=== PATIENT | female | born 1945 | race Caucasian/White ===

== ENCOUNTER 2019-04-04 12:23 | Outpatient (CLI) | payer MEDICARE, OTHER ==
[~2019-04-04] VITALS: Ht 160 cm; Wt 57.8 kg
[~2019-04-04 12:23] MED LIST: DEXL60CA5 PO; LOSA1TAB20 PO; PANT40TA PO; PANT40TA3 PO; SCR1T1 PO; SIMV40TA4 PO
[2019-04-04 12:40] VITALS: BP 131/75
[2019-04-04 13:16] LABS: BASOPHILS % (AUTO) 0 % (0-10); EOSINOPHILS # (AUTO) 0.1 10^3/uL (0.0-0.3); EOSINOPHILS % (AUTO) 1 % (0-10); HEMATOCRIT 37 % (35-52); HEMOGLOBIN 11.6 G/DL (11.5-16.0); LYMPHOCYTES # (AUTO) 1.9 X 10^3 (1.0-4.0); LYMPHOCYTES % (AUTO) 36 % (12-44); MEAN CORPUSCULAR HEMOGLOBIN 27 PG (25-34); MEAN CORPUSCULAR HGB CONC 32 G/DL (32-36); MEAN CORPUSCULAR VOLUME 86 FL (80-99); MEAN PLATELET VOLUME 9.4 FL (7.4-10.4); MONOCYTES # (AUTO) 0.4 X 10^3 (0.0-1.0); MONOCYTES % (AUTO) 7 % (0-12); NEUTROPHILS % (AUTO) 56 % (42-75); PLATELET COUNT 342 10^3/uL (130-400); RED CELL DISTRIBUTION WIDTH 14.9 % (10.0-14.5); WHITE BLOOD COUNT 5.4 10^3/uL (4.3-11.0)
--- NOTE | 2019-04-04 13:25 | Diagnostic Imaging Report ---
CLINICAL INDICATION: Preop chest x-ray for right knee arthroplasty. EXAM: Chest x-ray PA and lateral views. COMPARISON: Chest x-ray dated 08/21/2014. FINDINGS: Lungs/pleura: Likely minimal atelectasis in the left lung base. Otherwise, lungs are clear. There is no pneumothorax. There is no pleural effusion. Mediastinum: Unremarkable. Pulmonary vasculature: Unremarkable. Heart: Unremarkable. Bones/extrathoracic soft tissue: Interval placement of upper lumbar spine fusion partially visualized. IMPRESSION: Likely minimal atelectasis involving the left lung base. There is no radiographic evidence of acute cardiopulmonary process. Dictated by: Dictated on workstation # [id number]
[2019-04-04 13:32] LABS: PROTHROMBIN TIME PATIENT 13.2 SEC (12.2-14.7)
[2019-04-04] MEDS ORDERED: LOSA50TA63 PO (13:34)
[2019-04-04] MEDS ORDERED: HYDR12.56 PO (13:34)
[2019-04-04] MEDS ORDERED: SIMV40TA4 PO (13:34)
[2019-04-04 13:35] LABS: BILIRUBIN,URINE NEGATIVE (NEGATIVE); CLARITY,URINE CLEAR; COLOR,URINE YELLOW; GLUCOSE, URINE (UA) NEGATIVE (NEGATIVE); KETONES,URINE TRACE (NEGATIVE); LEUKOCYTE ESTERASE ,URINE NEGATIVE (NEGATIVE); NITRITE,URINE NEGATIVE (NEGATIVE); PH,URINE 5.5 (5-9); PROTEIN,URINE NEGATIVE (NEGATIVE)
[2019-04-04 13:35] LABS: BUN/CREATININE RATIO 19; CALCIUM 9.1 MG/DL (8.5-10.1); CARBON DIOXIDE 28 MMOL/L (21-32); CHLORIDE 104 MMOL/L (98-107); CREATININE SERUM 0.89 MG/DL (0.60-1.30); GFR ESTIMATED > 60; GLUCOSE 93 MG/DL (70-105); POTASSIUM 4.1 MMOL/L (3.6-5.0); SODIUM 141 MMOL/L (135-145)
[2019-04-04 13:45] LABS: BACTERIA,URINE FEW /HPF; RBC,URINE RARE /HPF
[2019-04-04 13:46] LABS: SQUAMOUS EPITHELIAL CELL,UR 25-50 /HPF
== END 2019-04-04 13:30 | disposition home or self-care (01) ==
LOC: PREOP 12:23
PROVIDERS: ATTEND Orthopaedic Surgery
DX: Z01.818 Encounter for other preprocedural examination (principal); Z01.812 Encounter for preprocedural laboratory examination; M17.11 Unilateral primary osteoarthritis, right knee; I10 Essential (primary) hypertension; Z22.322 Carrier or suspected carrier of Methicillin resistant Staphylococcus aureus
CPT/HCPCS: 36415; 71046; 80048; 81000; 85025; 85610; 86850; 86900; 86901; 87081; 93005

== ENCOUNTER 2019-04-16 10:57 | Inpatient (IN) | payer MEDICARE, OTHER ==
[~2019-04-16] VITALS: Ht 160 cm; Wt 63.0 kg
[2019-04-16] VITALS (10 sets, daily range): BP systolic 109–139; BP diastolic 61–85
[~2019-04-16 10:57] MED LIST changes: +HYDR12.56 PO; +LOSA50TA63 PO
[2019-04-16] MEDS ORDERED: INTRA-ARTICULAR IU ONE ×4 (11:30)
[2019-04-16] MEDS ORDERED: ONDANSETRON 4 MG/2 ML (SDV) Z0FRAN IV ONE (11:45)
[2019-04-16] MEDS ORDERED: ceFAZolin 2 GM/50 ML PRE-MIX IV ONE (11:45)
[2019-04-16] MEDS: LACTATED RINGERS 1,000 ML IV PRN ×3 (11:45→14:22)
[2019-04-16] MEDS ORDERED: CELECOXIB 100 MG (CeleBREX) CAP PO ONE ×2 (11:45)
[2019-04-16] MEDS ORDERED: ONDANSETRON 4 MG/2 ML (SDV) Z0FRAN IVP ONE (11:45)
[2019-04-16] MEDS ORDERED: GABAPENTIN 600 MG (NEURONTIN) TAB PO ONE ×2 (11:45)
[2019-04-16] MEDS ORDERED: DEXAMETHASONE 4 MG/ML SDV (DECADRON) IV ONE ×2 (11:45)
[2019-04-16] MEDS ORDERED: ceFAZolin 2 GM IV Premixed 50 ML IV ONE (11:45)
[2019-04-16] MEDS ORDERED: MIDAZOLAM 2 MG/2 ML (VERSED) VIAL ONE (11:55)
[2019-04-16] MEDS ORDERED: BUPIVACAINE 0.5% 30 ML (SENSORCAINE) VIAL ONE (11:57)
--- NOTE | 2019-04-16 12:39 | Progress Note-Pre Operative ---
Pre-Operative Progress Note H&P Reviewed The H&P was reviewed, patient examined and no changes noted. Date Seen by Provider: Apr 16, 2019 Time Seen by Provider: 12:30 Date H&P Reviewed: Apr 16, 2019 Time H&P Reviewed: 12:30 Pre-Operative Diagnosis: Primary Osteoarthritis Right Knee TYLER CERVANTES DO Apr 16, 2019 12:39 POS
[2019-04-16] MEDS ORDERED: DEXAMETHASONE 10 MG/ML (DECADRON) 1 ML VIAL ONE (12:48)
[2019-04-16] MEDS ORDERED: proPOfol 200 MG/20 ML (DIPRIVAN) VIAL IV ONE (12:48)
[2019-04-16] MEDS ORDERED: ONDANSETRON 4 MG/2 ML (SDV) Z0FRAN ONE ×2 (12:48→17:22)
[2019-04-16] MEDS ORDERED: LIDOCAINE PF 2% 5 ML (XYLOCAINE) VIAL ONE (12:48)
[2019-04-16] MEDS ORDERED: SEVOFLURANE (ULTANE) 15 ML INHAL SOLN ONE (12:48)
[2019-04-16] MEDS ORDERED: fentaNYL INJECTION 100 MCG/2 ML AMP ONE ×2 (12:50→13:39)
[2019-04-16] MEDS ORDERED: TRANEXAMIC ACID 100 MG/ML 10 ML INJECTION IV ONE (13:17)
[2019-04-16] MEDS ORDERED: MUPIROCIN 2% OINT 22 GM (BACTROBAN) TUBE ONE (14:51)
--- NOTE | 2019-04-16 14:58 | Progress Note-Post Operative ---
Post-Operative Progess Note Surgeon (s)/Strickler Attendant (s) Surgeon TYLER CERVANTES DO Strickler Attendant: Teddy Padron CABLE SYSTEMS INSTALLER-Luis Pre-Operative Diagnosis Primary Osteoarthritis Right Knee Post-Operative Diagnosis same Procedure & Operative Findings Date of Procedure 04/16/19 Procedure Performed/Findings Right Total Knee Arthroplasty Anesthesia Type General with femoral and genicular block Estimated Blood Loss Estimated blood loss (mL): 250 Specimens/Packing Specimens Removed none TYLER CERVANTES DO Apr 16, 2019 14:57 POS
[2019-04-16] MEDS ORDERED: morphine INJ 10 MG/ML 1ML (SYR OR VIAL) ONE (15:27)
[2019-04-16] MEDS ORDERED: BISACODYL 10 MG SUPP (DULCOLAX) PR PRN (15:30)
[2019-04-16] MEDS ORDERED: morphine INJ 10 MG/ML 1ML (SYR OR VIAL) IVP ONE (15:30)
[2019-04-16] MEDS ORDERED: ONDANSETRON 4 MG/2 ML (SDV) Z0FRAN IVP PRN ×2 (15:30→17:45)
[2019-04-16] MEDS ORDERED: MILK OF MAGNESIA 400 MG/5 ML 30 ML UDC PO PRN (15:30)
[2019-04-16] MEDS ORDERED: diphenhydrAMINE 50 MG/ML INJ (BENADRYL) IV PRN (15:30)
[2019-04-16] MEDS ORDERED: morphine INJ 4 MG/ML 1 ML (VIAL/SYRINGE) IV PRN (15:30)
[2019-04-16] MEDS ORDERED: HYDROmorphone 2 MG/ML VIAL (DILAUDID) IV ONE (15:30)
[2019-04-16] MEDS ORDERED: D5 1/2 NS 1000 ML IV SOLUTION 1,000 ML IV SCH (15:30)
--- NOTE | 2019-04-16 15:52 | Diagnostic Imaging Report ---
INDICATION: Right knee surgery. TIME OF EXAM: 3:31 p.m. FINDINGS: Two views of the right knee demonstrate postop changes of total knee arthroplasty. Prosthetic elements are in good position. No fracture or loosening is seen. Overlying skin shivani are noted. IMPRESSION: Satisfactory postop appearance to the right knee. Dictated by: Dictated on workstation # [id number]
--- NOTE | 2019-04-16 16:05 | NUR ---
Pt transferred to room 433. Report received from ARDEN Gaytan. This RN assumed care of pt at this time.
[2019-04-16] MEDS: ACETAMINOPHEN 500 MG TAB (TYLENOL) PO SCH (18:23)
[2019-04-16] MEDS: KETOROLAC 15 MG/ML VIAL IV SCH (18:23)
[2019-04-16] MEDS: D5 1/2 NS 1000 ML IV SOLUTION 1,000 ML IV SCH (18:24)
[2019-04-16] MEDS: ENOXAPARIN 40 MG/0.4 ML (LOVENOX) SYR SC SCH (18:24)
[2019-04-16] MEDS: ceFAZolin 2 GM IV Premixed 50 ML IV SCH (20:28)
[2019-04-16] MEDS: SENNA W/DOCUSATE (SENOKOT S) TABLET PO SCH (20:28)
[2019-04-16] MEDS: HYDROcodone/APAP 10 MG/325 MG (LORTAB) TAB PO PRN (20:35)
[2019-04-17] MEDS: KETOROLAC 15 MG/ML VIAL IV SCH ×5 (00:08→23:31)
[2019-04-17] MEDS: ACETAMINOPHEN 500 MG TAB (TYLENOL) PO SCH ×6 (00:08→23:05)
[2019-04-17] MEDS: HYDROcodone/APAP 10 MG/325 MG (LORTAB) TAB PO PRN ×5 (00:21→21:31)
[2019-04-17 00:40] VITALS: BP 122/69
[2019-04-17 04:00] VITALS: BP 112/65
[2019-04-17] MEDS: ceFAZolin 2 GM IV Premixed 50 ML IV SCH (04:35)
[2019-04-17 04:59] LABS: HEMOGLOBIN 10.1 G/DL (11.5-16.0); MEAN PLATELET VOLUME 9.9 FL (7.4-10.4); RED CELL DISTRIBUTION WIDTH 14.5 % (10.0-14.5); WHITE BLOOD COUNT 9.6 10^3/uL (4.3-11.0)
[2019-04-17 05:27] LABS: BUN/CREATININE RATIO 17; CALCIUM 8.7 MG/DL (8.5-10.1); CARBON DIOXIDE 26 MMOL/L (21-32); CHLORIDE 102 MMOL/L (98-107); CREATININE SERUM 0.78 MG/DL (0.60-1.30); GFR ESTIMATED > 60; GLUCOSE 220 MG/DL (70-105); POTASSIUM 4.4 MMOL/L (3.6-5.0); SODIUM 139 MMOL/L (135-145)
[2019-04-17] MEDS: PANTOPRAZOLE 40 MG (PROTONIX) TAB PO SCH (06:15)
[2019-04-17] MEDS: D5 1/2 NS 1000 ML IV SOLUTION 1,000 ML IV SCH ×2 (06:19→17:20)
[2019-04-17 08:00] VITALS: BP 120/71
[2019-04-17] MEDS: LOSARTAN 50 MG (COZAAR) TAB PO SCH (08:55)
[2019-04-17] MEDS: HYDROCHLOROTHIAZIDE 12.5 MG (HCTZ) CAP PO SCH (08:56)
[2019-04-17] MEDS: ASPIRIN E.C. 325 MG (ECOTRIN) TABLET PO SCH (08:57)
[2019-04-17] MEDS ORDERED: NON-FORMULARY MEDICATION 1 EA EA (Hydrochlorothiazide 12.5 MG) PO SCH (09:00)
[2019-04-17] MEDS ORDERED: NON-FORMULARY MEDICATION 1 EA EA (Losartan Potassium 50 MG) PO SCH (09:00)
--- NOTE | 2019-04-17 10:00 | Anesthesia-General Post-Op ---
General Patient Condition Mental Status/LOC: Same as Preop Cardiovascular: Satisfactory Nausea/Vomiting: Absent Respiratory: Satisfactory Pain: Controlled Complications: Absent Post Op Complications Complications None Follow Up Care/Instructions Patient Instructions None needed. Anesthesia/Patient Condition Patient Condition Patient is doing well, no complaints, stable vital signs, no apparent adverse anesthesia problems. No complications reported per nursing. D/C home per [facility] Criteria: CORRINE Luna CRNA Apr 17, 2019 10:00 POS
--- NOTE | 2019-04-17 10:24 | Physical Therapy Evaluation ---
PT Evaluation-General Medical Diagnosis Admission Date Apr 16, 2019 at 10:57 Medical Diagnosis: S/P R TKA Onset Date: Apr 16, 2019 Therapy Diagnosis Therapy Diagnosis: abn gait. weakness, ROM Height/Weight Height (Feet): 5 Height (Inches): 3.00 Weight (Pounds): 139 Weight (Ounces): 0.0 Precautions Precautions/Isolations: Fall Prevention Weight Bear Status Right Lower Extremity: Right Weight Bearing/Tolerated Left Lower Extremity: Left Weight Bearing/Tolerated Referral Physician: Teddy Padron Reason for Referral: Evaluation/Treatment, Strengthening Medical History Additional Medical History no PMH in chart at this time. Reviewed History: Yes Social History Home: Single Level Current Living Status: Significant Other Entry Into Home: Stairs Without Railing PT Steps Into Home: 2 Prior Prior Level of Function SCALE: Activities may be completed with or without assistive devices. 5-Gpimnhdqjq-ifxxbbk completes the activity by him/herself with no assistance from a helper. 5-Set-up or Clean-up Assistance-helper sets up or cleans up; patient completes activity. [place] assists only prior to or following the activity. 4-Supervision or Touching Assistance-helper provides verbal cues and/or touching/steadying and/or contact guard assistance as patient completes activity. Assistance may be provided throughout the activity or intermittently. 3-Partial/Moderate Assistance-helper does LESS THAN HALF the effort. [place] lifts, holds or supports trunk or limbs, but provides less than half the effort. 2-Substantial/Maximal Assistance-helper does MORE THAN HALF the effort. [place] lifts or holds trunk or limbs and provides more than half the effort. 6-Dnvndlyok-szxkig does ALL the effort. Patient does none of the effort to complete the activity. Or, the assistance of 2 or more helpers is required for the patient to complete the activity. If activity was not attempted, code reason: 7-Patient Refused. 9-Not Applicable-not attempted and the patient did not perform the activity before the current illness, exacerbation or injury. 10-Not Attempted due to Environmental Limitations-(lack of equipment, weather restraints, etc.). 88-Not Attempted due to Medical Conditions or Safety Concerns. Bed Mobility: 6 Transfers (B,C,W/C): 6 Gait: 6 Stairs: 6 Indoor Mobility (Ambulation): Independent Stairs: Independent PT Evaluation-Current Subjective pt in bed pre-tx with pain in the R knee 5/10 at this time. pt agrees to therapy Pt in bed post-tx with call light, room phone, tray table in reach and all needs met at this time. CPM is defective, will try to get her another one today or soon. Pt/Family Goals pt goal is to go home indep. Objective Patient Orientation: Person, Place, Time, Situation Attachments: SCD's, Oxygen (1L), Polar Pack, IV ROM/Strength ROM Lower Extremities R knee flexion 70degrees extension lack 8degrees Strength Lower Extremities RLE not tested secondary to post surgical status LLE grossly 5/5 throughout Integumentary/Posture Integumentary see nursing notes Sensory Vision: Functional Hearing: Functional Sensation Right Lower Extremit: Intact Sensation Left Lower Extremity: Intact Transfers Roll Left to Right (QC): 4 Sit to Lying (QC): 4 (SBA) Lying to Sitting/Side of Bed(Q: 4 (SBA) Sit to Stand (QC): 4 (SBA) Chair/Jnx-uh-Ljmoz Xfer(QC): 4 Car Transfer (QC): 88 Gait Does the Patient Walk?: Yes Mode of Locomotion: Walk Anticipated Mode of Locomotion: Walk Walk 10 feet (QC): 4 (CGA) Walk 50 ft with 2 Turns(QC): 4 (CGA) Walk 150 ft (QC): 4 (CGA) Walking 10ft/uneven surface-QC: 88 Distance: 180' Gait Assistive Device: FWW Comments/Gait Description pt walks with RLE in flexed position and short choppy steps. VC's given to take longer steps and to allow the RLE to flex for swing and straighten out for stance phase with slight improvement Wheelchair Training Does the Pt Use a Wheelchair?: No Wheel 50 ft with 2 turns (QC): 88 Wheel 150 ft (QC): 8 Type of Wheelchair: Manual Stairs 1 Step (curb) (QC): 88 4 Steps (QC): 88 12 Steps (QC): 88 Balance Sitting Static: Normal Sitting Dynamic: Normal Standing Static: Normal Standing Dynamic: Good Picking up an Object (QC): 88 Treatment pt performed bed mobility training, transfer training, skilled ambulation training, education, and functional LE strengthening exercises (10 reps in supine: AP's, HS's, SLR, QS, GS, LAQ) Assessment/Needs Pt has decreased pain to no pain from baseline following session. Pt requires mod VC's to continues to take longer steps and allow R knee motion with ambulation to decrease R hip hike. Rehab Potential: Good PT Golf Tournament Consultant Goals Golf Tournament Consultant Goals PT Golf Tournament Consultant Goals Time Frame: Apr 24, 2019 Roll Left & Right (QC): 6 Sit to Lying (QC): 6 Lying-Sitting on Side/Bed(QC): 6 Sit to Stand (QC): 6 Chair/Hoo-mi-Kgoxn Xfer(QC): 6 Toilet Transfer (QC): 6 Car Transfer (QC): 6 Does the Patient Walk: Yes Walk 10 feet (QC): 6 Walk 50ft with 2 Turns (QC): 6 Walk 150 ft (QC): 6 Walking 10ft on Uneven Surface: 6 1 Step (curb) (QC): 4 4 Steps (QC): 4 12 Steps (QC): 88 Picking up an Object (QC): 88 Does the Pt use WC or Scooter?: No Type: Manual Type: Manual pt will walk 300' indep with FWW PT Plan Problem List Problem List: Activity Tolerance, Functional Strength, Safety, Balance, Gait, Transfer, Bed Mobility, ROM Treatment/Plan Treatment Plan: Continue Plan of Care Treatment Plan: Bed Mobility, Education, Functional Activity Liliana, Functional Strength, Gait, Safety, Therapeutic Exercise, Transfers Treatment Duration: Apr 24, 2019 Frequency: 11 times per week Estimated Hrs Per Day: .25 hour per day Patient and/or Family Agrees t: Yes Safety Risks/Education Patient Education: Gait Training, Transfer Techniques, Correct Positioning, Safety Issues Teaching Recipient: Patient Teaching Methods: Demonstration, Discussion Response to Teaching: Return Demonstration, Reinforcement Needed Discharge Recommendations Plan pt will perform functional LE strengthening exercises, skilled ambulation training, bed mobility training, transfer training, and education. Time/GCodes Time In: 917 Time Out: 943 Total Billed Treatment Time: 26 Total Billed Treatment 1 visit JOVITA 10' GT 16' RAFAEL PICKERING PT Apr 17, 2019 10:24 POS
--- NOTE | 2019-04-17 11:56 | NUR ---
CM DISCHARGE PLANNING: SS referral received for discharge planning. Visited with patient et she reports that she will be discharged to home tomorrow. She reports that she would like Physical therapy at home. Choice form was presented to her of the available [facility] agencies. She elected [facility]. Choice form signed et placed on her chart. Contacted [facility] for referral et anticipated discharge date. She denies any other needs et reports that she has a CPM to take home with her that Dr. Rae nurse set up. CPM is at bedside. She reports that she has all other equipment et no further needs. D/C with [facility] for Physical therapy.
[2019-04-17 12:00] VITALS: BP 121/65
--- NOTE | 2019-04-17 12:31 | Progress Note ---
Subjective Date Seen by a Provider: Apr 17, 2019 Time Seen by a Provider: 12:26 Subjective/Events-last exam No complaints at this time. Doing well POD 1 s/p right TKA Objective Exam Vital Signs Date Time Temp Pulse Resp B/P (MAP) Pulse Ox O2 Delivery O2 Flow Rate FiO2 04/17/19 08:00 36.0 77 18 120/71 (87) 99 Nasal Cannula 2.00 04/17/19 08:00 99 Nasal Cannula 1.00 04/17/19 05:48 Nasal Cannula 2.00 04/17/19 04:00 36.5 73 18 112/65 (81) 98 Nasal Cannula 2.00 04/17/19 00:40 36.7 73 16 122/69 (86) 98 Nasal Cannula 2.00 04/16/19 20:25 98 Nasal Cannula 2.00 04/16/19 20:25 Nasal Cannula 2.00 04/16/19 20:09 36.4 77 16 109/61 (77) 98 Nasal Cannula 2.00 04/16/19 16:25 Nasal Cannula 3.00 04/16/19 16:05 Nasal Cannula 3 04/16/19 16:05 36.6 20 137/78 (97) 98 Nasal Cannula 3 04/16/19 16:02 36.0 88 14 137/68 (91) 99 Nasal Cannula 3.00 04/16/19 16:00 Nasal Cannula 3 04/16/19 16:00 20 137/79 (98) 98 Nasal Cannula 3 04/16/19 15:50 20 137/79 (98) 97 Nasal Cannula 3 04/16/19 15:45 Room Air 04/16/19 15:40 20 139/77 (97) 99 OxyMask 3 04/16/19 15:30 OxyMask 8 04/16/19 15:30 20 137/85 (102) 100 OxyMask 8 04/16/19 15:20 20 123/80 (94) 100 OxyMask 8 04/16/19 15:15 OxyMask 8 04/16/19 15:10 OxyMask 8 04/16/19 15:10 36.9 16 119/81 (94) 100 OxyMask 8 I & O 04/17/19 07:00 Intake Total 2710 ml Output Total 1050 ml Balance 1660 ml Capillary Refill : Less Than 3 Seconds General Appearance: No Apparent Distress Gastrointestinal: non tender, soft Extremity: Normal Capillary Refill, Normal Inspection, Normal Range of Motion, Non Tender, No Calf Tenderness Neurologic/Psychiatric: Alert, Oriented x3, No Motor/Sensory Deficits Skin: Normal Color, Warm/Dry (dressing right knee CDI) Results Lab Laboratory Tests 04/17/19 04:30: White Blood Count 9.6, Red Blood Count 3.74L, Hemoglobin 10.1L, Hematocrit 32L, Mean Corpuscular Volume 85, Mean Corpuscular Hemoglobin 27, Mean Corpuscular Hemoglobin Concent 32, Red Cell Distribution Width 14.5, Platelet Count 313, Mean Platelet Volume 9.9, Sodium Level 139, Potassium Level 4.4, Chloride Level 102, Carbon Dioxide Level 26, Anion Gap 11, Blood Urea Nitrogen 13, Creatinine 0.78, Estimat Glomerular Filtration Rate > 60, BUN/Creatinine Ratio 17, Glucose Level 220H, Calcium Level 8.7 Assessment/Plan Assessment/Plan Assess & Plan/Chief Complaint A: s/p right TKA P: Continue current treatment, plan to DC to home with [facility] tomorrow Clinical Quality Measures DVT/VTE Risk/Contraindication: Risk Factor Score Per Nursin RFS Level Per Nursing on Admit: 4+=Very High SHANE MESSER APRN Apr 17, 2019 12:31 POS
--- NOTE | 2019-04-17 13:19 | Occupational Therapy Eval ---
OT Evaluation-General/PLF Medical Diagnosis Admission Date Apr 16, 2019 at 10:57 Medical Diagnosis: S/P R TKA Onset Date: Apr 16, 2019 Therapy Diagnosis Therapy Diagnosis: Decreased functional mobility and ADL function Height/Weight Height (Feet): 5 Height (Inches): 3.00 Weight (Pounds): 139 Weight (Ounces): 0.0 Precautions Precautions/Isolations: Fall Prevention Safety Interventions: Reorient-PRN Weight Bear Status Weight Bearing Restriction: Weight Bearing/Tolerated Referral Physician: Teddy Padron Referral Reason: Activity Tolerance, Self Care, Evaluation/Treatment, Strengthening/ROM Medical History Additional Medical History R TKA Reviewed History: Yes Social History Home: Single Level Current Living Status: Significant Other Entry Into Home: Stairs Without Railing Steps Into Home: 2 Steps Inside Home: 0 ADL-Prior Level of Function SCALE: Activities may be completed with or without assistive devices. 3-Lzznzrygta-pmqspfr completes the activity by him/herself with no assistance from a helper. 5-Set-up or Clean-up Assistance-helper sets up or cleans up; patient completes activity. [place] assists only prior to or following the activity. 4-Supervision or Touching Assistance-helper provides verbal cues and/or touching/steadying and/or contact guard assistance as patient completes activity. Assistance may be provided throughout the activity or intermittently. 3-Partial/Moderate Assistance-helper does LESS THAN HALF the effort. [place] lifts, holds or supports trunk or limbs, but provides less than half the effort. 2-Substantial/Maximal Assistance-helper does MORE THAN HALF the effort. [place] lifts or holds trunk or limbs and provides more than half the effort. 9-Ujpunrycp-diozxq does ALL the effort. Patient does none of the effort to complete the activity. Or, the assistance of 2 or more helpers is required for the patient to complete the activity. If activity was not attempted, code reason: 7-Patient Refused. 9-Not Applicable-not attempted and the patient did not perform the activity before the current illness, exacerbation or injury. 10-Not Attempted due to Environmental Limitations-(lack of equipment, weather restraints, etc.). 88-Not Attempted due to Medical Conditions or Safety Concerns. Self Care: Independent Functional Cognition: Independent DME/Equipment: Bath Chair, Tub/Shower DME/Equipment Comments Pt has FWW and single point cane at home. Occupation: retired Drive Self: Yes Leisure Interests: cooking OT Current Status Subjective Pt seen in bed, requests bathroom. Pt states no pain, agreeable to OT evaluation. Mental Status/Objective Patient Orientation: Person, Place, Situation, Normal For Age Attachments: IV, Oxygen (.5L), Polar Pack, SCD's Current Glasses/Contacts: Yes Hearing Aids: No Dentures/Partials: Yes Hand Dominance: Right Upper Extremity ROM WFL BUE Upper Extremity Coordination WFL BUE Upper Extremity Sensation WFL BUE, no c/o paresthesias Upper Extremity Strength WFL BUE= 4-/5 ADL-Treatment Eating (QC): 6 Oral Hygiene (QC): 7 Shower/Bathe Self (QC): 7 Upper Body Dressing (QC): 7 Lower Body Dressing (QC): 6 On/Off Footwear (QC): 6 Toileting Hygiene (QC): 6 Toilet Transfer (QC): 6 Other Treatments Pt completes bed mob with IND, increased time for tubing management. Pt sit to stand with IND to FWW, utilizes FWW with safety to commode. Completes toileting with IND, sit to stand with IND with FWW and transfers to EOB. Pt completes doffing/ donning R sock with good dynamic sitting balance with IND. Pt states both she and retired, she gets all groceries on Mondays and plans to "take it easy" within the home until she returns to [place], states she will have HHPT 3x per week. Pt educated on acute OT role and agree pt is safe with ADLs. Pt states minimal pain through TKA, no pain currently but has had 6/10 pain prior. Pt denies sitting up for food; returns to bed with SCD and polar pack donned, table s/u for feeding, call light in reach, all needs met. Education OT Patient Education: Correct positioning, Modified ADL techniques, Purpose of tx/functional activities, Safety issues Teaching Recipient: Patient Teaching Methods: Demonstration, Discussion Response to Teaching: Verbalize Understanding, Return Demonstration OT Ply Bander Goals Retirement Goals Time Frame: Apr 17, 2019 Eating (QC): 6 Oral Hygiene (QC): 7 Toileting Hygiene (QC): 6 Shower/Bathe Self (QC): 7 Upper Body Dressing (QC): 7 Lower Body Dressing (QC): 6 On/Off Footwear (QC): 6 1=Demonstrate adherence to instructed precautions during ADL tasks. 2=Patient will verbalize/demonstrate understanding of assistive devices/modifications for ADL. 3=Patient will improve strength/tolerance for activity to enable patient to perform ADL's. OT Education/Plan Problem List/Assessment Assessment: No Skilled OT Needs ID'd Discharge Recommendations Plan/Recommendations: Discharge/Goals Met Treatment Plan/Plan of Care Treatment,Training & Education: Yes Patient would benefit from OT for education, treatment and training to promote independence in ADL's, mobility, safety and/or upper extremity function for ADL's. Plan of Care: OTHER (eval only) Treatment Duration: Apr 17, 2019 Frequency: 1 time per week (eval only) Agreement: Yes Rehab Potential: Good Time/GCodes Start Time: 12:55 Stop Time: 13:10 Total Time Billed (hr/min): 15 Billed Treatment Time 1, EVL (15) PRAVIN GARCIA OTR Apr 17, 2019 13:19 POS
--- NOTE | 2019-04-17 14:23 | OPERATIVE REPORT ---
DATE OF SERVICE: 04/16/2019 PREOPERATIVE DIAGNOSIS: Primary osteoarthritis, right knee. POSTOPERATIVE DIAGNOSIS: Primary osteoarthritis, right knee. PROCEDURE: Right total knee arthroplasty. SURGEON: Tyler Cervantes DO CLAM GROWER: BARRETT Jordan SURGICAL ADVERTISING AGENCY MANAGER DUTIES: Teddy Padron, surgical tech was utilized throughout the entire procedure for patient positioning, soft tissue retraction, assistance in placement of total knee implants, wound closure, dressing application and the patient transfer. ANESTHESIA: General with femoral and genicular nerve block. ESTIMATED BLOOD LOSS: 250 mL. COMPLICATIONS: None. OPERATIVE TIME: Please see anesthesia report. INDICATIONS AND FINDINGS: The patient is a 73-year-old female seen with chief complaint of progressive right knee pain, nonresponsive to conservative treatment. An MRI evaluation of her knee revealed severe degenerative change of the lateral compartment with significant subchondral edema throughout the lateral femoral condyle and lateral tibial plateau. The patient was taken to surgery where a total knee arthroplasty was performed on the right without complication utilizing the Biomet Prieto Batteryguard total knee system with a press fit 62.5 mm femoral component, a 67 mm fixed I-beam cemented tibial component, a 10 mm anterior stabilized tibial bearing implant with a 31 mm 3-pronged all polyethylene cemented standard patellar component. Palacos bone cement was utilized as well. PROCEDURE IN DETAIL: The patient was seen by anesthesia preoperatively and under ultrasound guidance, a femoral and genicular nerve block was performed on the right to decrease postoperative pain and decrease amount of medication required during the surgical procedure. The patient was transported to the operating room where general inhalation anesthetic was administered. A well-padded pneumatic tourniquet was placed about the upper aspect of the right thigh. A ChloraPrep and sterile drape of the right lower extremity was performed. The right leg was elevated, exsanguinated and the tourniquet was inflated to 300 mmHg pressure. An anterior longitudinal midline incision was made over the anterior surface of the right knee. The incision was deepened through a medial parapatellar incision. The patella was subluxed laterally. Osteophytes from the medial and lateral femoral condyle were removed with a bone rongeur. A commuter pilot hole was then drilled in the distal femur utilizing a 6 degree valgus cutting angle. A distal femoral cutting guide was assembled and distal femoral osteotomy was completed. Additional subperiosteal dissection was performed on the proximal medial tibia. Osteophytes in the medial tibial plateau were removed. Remnants of the medial and lateral menisci as well as the anterior cruciate ligament were excised. A commuter pilot hole was then drilled in the proximal tibia. An intramedullary master was inserted. A proximal tibial cutting guide was assembled and a proximal tibial osteotomy was completed. Attempts were made to extend the knee with a 10 mm spacer without success. The distal femoral cutting guide was reassembled. An additional 1 mm bone was removed from the distal femur with a 4-way cutting guide reassembled and chamfer cuts then made again. The knee could then be fully extended and full extension with a 10 mm gap sizer. The posterior aspect of patella was resected through a cutting guide and drilled through the drill guide. Provisional components were inserted. The knee was cycled through a range of motion. Rotation of the tibial component was noted and marked on the proximal tibia. The proximal tibia was then broached to accept the I-beam stem portion of the tibial implant. The bony surfaces were irrigated extensively with normal saline solution containing gentamicin. Palacos bone cement was mixed. This was pressurized in the proximal tibia and the tibial component was cemented in place. The femoral component was press fit into place. The patellar component was cemented in place and held with a clamp. Excessive cement was removed. The tourniquet was released. Hemostasis was obtained with electrocautery. The knee was cycled through a range of motion and found to be stable in mid range flexion, full flexion with full extension obtained. Provisional component was removed. A 10 mm anterior stabilized tibial bearing implant was then inserted and locked anteriorly with a locking bar. The knee was then placed in 90 degrees of flexion. The medial retinaculum was closed with multiple interrupted miqhck-xa-nguoe sutures of #1 Vicryl reinforced with a running suture of #1 Stratafix. Subcutaneous tissues were closed with interrupted 0 and 2-0 Vicryl suture. The skin was closed with stainless steel shivani and Adaptic Neosporin bulky dressing was placed on the right knee. The patient was awakened and was transported to postop recovery with anesthesia personnel present in satisfactory condition. Job ID: [id number] DocumentID: [id number] Dictated Date: 04/17/2019 10:48:35 Church Administrator Date: 04/17/2019 14:22:41 Dictated By: TYLER CERVANTES DO
--- NOTE | 2019-04-17 14:28 | Physical Therapy Daily Note ---
PT Daily Note-Current Subjective Patient agrees to PT at this time. Patient reports 6/10 pain at medial aspect of R knee but had pain pill with lunch. Patient on 0.5L O2 but nursing states patient can ambulate without O2. Pain Numeric Pain Scale: 6 Location: Medial Location Body Site: Knee Pain Description: Acute Mental Status Patient Orientation: Person, Place, Time, Situation Attachments: SCD's, Oxygen (0.5L), Polar Pack, IV Transfers SCALE: Activities may be completed with or without assistive devices. 1-Uraxdovyxd-jwuionm completes the activity by him/herself with no assistance from a helper. 5-Set-up or Clean-up Assistance-helper sets up or cleans up; patient completes activity. [place] assists only prior to or following the activity. 4-Supervision or Touching Assistance-helper provides verbal cues and/or touching/steadying and/or contact guard assistance as patient completes activit y. Assistance may be provided throughout the activity or intermittently. 3-Partial/Moderate Assistance-helper does LESS THAN HALF the effort. [place] lifts, holds or supports trunk or limbs, but provides less than half the effort. 2-Substantial/Maximal Assistance-helper does MORE THAN HALF the effort. [place] lifts or holds trunk or limbs and provides more than half the effort. 0-Mdpqigtkg-rnsuhl does ALL the effort. Patient does none of the effort to complete the activity. Or, the assistance of 2 or more helpers is required for the patient to complete the activity. If activity was not attempted, code reason: 7-Patient Refused. 9-Not Applicable-not attempted and the patient did not perform the activity before the current illness, exacerbation or injury. 10-Not Attempted due to Environmental Limitations-(lack of equipment, weather restraints, etc.). 88-Not Attempted due to Medical Conditions or Safety Concerns. Roll Left & Right (QC): 4 Sit to Lying (QC): 4 Lying to Sitting/Side of Bed(Q: 4 Sit to Stand (QC): 4 SBA bed mobility and transfers Weight Bearing Right Lower Extremity: Right Weight Bearing/Tolerated Left Lower Extremity: Left Weight Bearing/Tolerated Gait Training Does the Patient Walk?: Yes Distance: 300' Walk 10 feet (QC): 4 Walk 50 ft with 2 Turns(QC): 4 Walk 150 ft (QC): 4 Gait Assistive Device: FWW SBA ambulation; initial antalgic gait but normal pace and pattern at end of ambulation. Exercises Supine Ex: Heel Slides Supine Reps: 10 Assessment Patient able to perform all bed mobility and standing SBA. Patient ambulated 300' with FWW CGA. Initially demonstrated slightly antalgic gait but was able to demonstrate normal pace and pattern by conclusion of ambulation. Patient returned to bed after treatment with polar pack and SCD on and O2 nasal cannula replaced at 0.5L O2. PT Head Pastry Chef Goals Head Pastry Chef Goals PT Usp Goals Time Frame: Apr 24, 2019 Roll Left & Right (QC): 6 Sit to Lying (QC): 6 Lying-Sitting on Side/Bed(QC): 6 Sit to Stand (QC): 6 Chair/Byo-tc-Taoae Xfer(QC): 6 Toilet Transfer (QC): 6 Car Transfer (QC): 6 Does the Patient Walk: Yes Walk 10 feet (QC): 6 Walk 50ft with 2 Turns (QC): 6 Walk 150 ft (QC): 6 Walking 10ft on Uneven Surface: 6 1 Step (curb) (QC): 4 4 Steps (QC): 4 12 Steps (QC): 88 Picking up an Object (QC): 88 Does the Pt use WC or Scooter?: No Type: Manual Type: Manual PT Plan Treatment/Plan Treatment Plan: Continue Plan of Care Treatment Plan: Bed Mobility, Education, Functional Activity Liliana, Functional Strength, Gait, Safety, Therapeutic Exercise, Transfers Treatment Duration: Apr 24, 2019 Frequency: 11 times per week Estimated Hrs Per Day: .25 hour per day Patient and/or Family Agrees t: Yes Time/GCodes Time In: 1350 Time Out: 1404 Total Billed Treatment Time: 14 Total Billed Treatment 1 visit FA 14min SUZIE PRSECOTT KNOCKDOWN WORKER Apr 17, 2019 14:28 POS
[2019-04-17 15:51] VITALS: BP 107/63
[2019-04-17] MEDS: BACLOFEN 10 MG (LIORESAL) TAB PO PRN ×2 (17:17→21:31)
[2019-04-17] MEDS: ENOXAPARIN 40 MG/0.4 ML (LOVENOX) SYR SC SCH (17:18)
[2019-04-17 20:10] VITALS: BP 113/59
[2019-04-17] MEDS: SENNA W/DOCUSATE (SENOKOT S) TABLET PO SCH (21:31)
[2019-04-18 00:35] VITALS: BP 118/56
[2019-04-18 04:50] VITALS: BP 124/61
[2019-04-18] MEDS ORDERED: IBUPROFEN 600 MG (MOTRIN) TAB PO SCH (06:00)
[2019-04-18] MEDS: ACETAMINOPHEN 500 MG TAB (TYLENOL) PO SCH (06:06)
[2019-04-18] MEDS: PANTOPRAZOLE 40 MG (PROTONIX) TAB PO SCH (06:06)
[2019-04-18] MEDS: HYDROcodone/APAP 10 MG/325 MG (LORTAB) TAB PO PRN (06:06)
[2019-04-18 06:16] LABS: HEMOGLOBIN 9.6 G/DL (11.5-16.0); MEAN PLATELET VOLUME 10.5 FL (7.4-10.4); RED CELL DISTRIBUTION WIDTH 14.9 % (10.0-14.5); WHITE BLOOD COUNT 8.1 10^3/uL (4.3-11.0)
--- NOTE | 2019-04-18 06:45 | D/C HH Face to Face Order ---
D/C Face to Face Orders Reconcile Patient Problems Problems Reviewed?: Yes Instructions for Patient Via [facility], Patient Instructions/FollowUp: f/u 2 1/2 weeks WBAT with walker CPM 6 hrs per day, adv as pam Polar care to knee intermittently daily island dressing changes if wound is draining may shower with incision uncovered Bilateral FITO pierce Physician to follow Patient: Dr. Ndiaye Discharge Diet for Home: No Restrictions Patient Problems: Primary OA right knee s/p right TKA Goals for Patient: independence with ADL Patient Data-Allergies,Ht & Wt Patient Allergies: Coded Allergies: No Known Drug Allergies (Unverified , 07/02/10) Height (Feet): 5 Height (Inches): 3.00 Weight (Pounds): 139 Weight (Ounces): 0.0 Home Health Need/Face to Face Date of Face to Face: Apr 18, 2019 Clinical Findings: Muscle weakness, Pain with ambulation, Unsteady gait I have seen Pt jrnv-ou-alzb: Yes Discharged To: Home Diagnosis/Conditions: Primary OA right knee s/p right TKA Patient is Homebound due to: Vane fall risk due to instabilty, Muscle weak ness, Pain w/ambulation Homebound Status Due to the above stated illness, injury or surgical procedure (medical condition or diagnosis) and associated clinical findings, the patient is homebound because of his/her inability to leave home except with aid of a supportive device and/or person AND leaving the home requires a considerable and taxing effort or is medically contraindicated. Pt req the following assistanc: Walker Home Health Nursing Orders Home Health Services Order: Nursing Services, Physical Therapy-Evaluate & Treat physical therapy 5x/week x 2 weeks to assist with ambulation and treat ROM nursing to remove shivani and apply steri strips to incision on 04/25/19 Home Health Infusion Therapy Line Start Date: Apr 16, 2019 Therapy Orders Therapy Orders: Physical Therapy Therapy Specific Orders: Gait training, Increase strength/endurance, Restore ROM Certify Stmt I certify that this patient is under my care and that I, a nurse practitioner or a physician; a team assistant working with me, had a face to face encounter that - meets the physician face to face encounter requirements with this patient as dated. SHANE MESSER APRN Apr 17, 2019 12:37 POS
--- NOTE | 2019-04-18 06:49 | Discharge Summary ---
Diagnosis/Chief Complaint Date of Admission Apr 16, 2019 at 10:57 Date of Discharge 04/18/2019 Discharge Date: Apr 18, 2019 Admission Diagnosis Admission Diagnosis Primary OA right knee Discharge Diagnosis Primary OA right knee s/p right TKA Reason Hospital Visit scheduled Right total knee arthroplasty Discharge Summary Procedures: Right total knee arthroplasty Consultations internal medicine for medical management Discharge Physical Examination Allergies: Coded Allergies: No Known Drug Allergies (Unverified , 07/02/10) Vitals & I&Os Vital Signs Date Time Temp Pulse Resp B/P (MAP) Pulse Ox O2 Delivery O2 Flow Rate FiO2 04/18/19 04:50 36.2 84 18 124/61 (82) 98 Room Air 04/17/19 19:30 1.00 General Appearance: Alert, Oriented X3 HEENT: PERRLA Respiratory: Clear to Auscultation Cardiovascular: Regular Rate Abdominal: Soft, No Tenderness Extremities: No Clubbing, No Cyanosis Skin: No Rashes, No Breakdown Neuro: Strength at 5/5 X4 Ext, Normal Tone, Sensation Intact Psych/Mental Status: Mental Status NL Hospital Course Was the Problem List Reviewed?: Yes The patient underwent a right TKA on the date of admission. She was admitted for pain control, iv antibiotics, and DVT prophylaxis. She did well and overall her hospital course was uneventful. She was discharged to home with home healthcare on POD 2. Pending Labs Laboratory Tests 04/18/19 05:55: White Blood Count 8.1, Red Blood Count 3.42, Hemoglobin 9.6, Hematocrit 30, Mean Corpuscular Volume 88, Mean Corpuscular Hemoglobin 28, Mean Corpuscular Hemoglobin Concent 32, Red Cell Distribution Width 14.9, Platelet Count 216, Mean Platelet Volume 10.5, Sodium Level [Pending], Potassium Level [Pending], Chloride Level [Pending], Carbon Dioxide Level [Pending], Anion Gap [Pending], Blood Urea Nitrogen [Pending], Creatinine [Pending], BUN/Creatinine Ratio [Pending], Glucose Level [Pending], Calcium Level [Pending] Discharge Condition at discharge good Instructions to patient/family Please see electronic discharge instructions given to patient. Discharge Medications Reviewed and agree with Discharge Medication list on patient's Discharge Instruction sheet Clinical Quality Measures DVT/VTE Risk/Contraindication: Risk Factor Score Per Nursin RFS Level Per Nursing on Admit: 4+=Very High AYDE,SHANE E DIFFERENTIAL SPECIALIST Apr 18, 2019 06:49 POS
[2019-04-18 06:54] LABS: BUN/CREATININE RATIO 17; CALCIUM 8.4 MG/DL (8.5-10.1); CARBON DIOXIDE 29 MMOL/L (21-32); CHLORIDE 105 MMOL/L (98-107); CREATININE SERUM 0.82 MG/DL (0.60-1.30); GFR ESTIMATED > 60; GLUCOSE 97 MG/DL (70-105); POTASSIUM 4.1 MMOL/L (3.6-5.0); SODIUM 142 MMOL/L (135-145)
[2019-04-18] MEDS ORDERED: ASPI325T32 PO (06:54)
[2019-04-18] MEDS ORDERED: SENN-20 PO (06:54)
[2019-04-18] MEDS ORDERED: HYDR-3820 PO (06:54)
[2019-04-18] MEDS: D5 1/2 NS 1000 ML IV SOLUTION 1,000 ML IV SCH (06:59)
[2019-04-18 08:00] VITALS: BP 115/65
[2019-04-18] MEDS: HYDROCHLOROTHIAZIDE 12.5 MG (HCTZ) CAP PO SCH (09:30)
[2019-04-18] MEDS: LOSARTAN 50 MG (COZAAR) TAB PO SCH (09:30)
[2019-04-18] MEDS: ASPIRIN E.C. 325 MG (ECOTRIN) TABLET PO SCH (09:30)
--- NOTE | 2019-04-18 10:00 | Physical Therapy Daily Note ---
PT Daily Note-Current Subjective Patient agrees to PT at this time. Patient reports she is feeling better than yesterday and will be going home today. States 7/10 pain but had pain medication before breakfast. Pain Numeric Pain Scale: 7 Location: Right Location Body Site: Knee Pain Description: Acute Mental Status Patient Orientation: Person, Place, Time, Situation Attachments: SCD's, Polar Pack Transfers SCALE: Activities may be completed with or without assistive devices. 5-Utittearvw-pmvvzjz completes the activity by him/herself with no assistance from a helper. 5-Set-up or Clean-up Assistance-helper sets up or cleans up; patient completes activity. [place] assists only prior to or following the activity. 4-Supervision or Touching Assistance-helper provides verbal cues and/or touching/steadying and/or contact guard assistance as patient completes activity. Assistance may be provided throughout the activity or intermittently. 3-Partial/Moderate Assistance-helper does LESS THAN HALF the effort. [place] lift s, holds or supports trunk or limbs, but provides less than half the effort. 2-Substantial/Maximal Assistance-helper does MORE THAN HALF the effort. [place] lifts or holds trunk or limbs and provides more than half the effort. 0-Vdabaxfey-pwfamb does ALL the effort. Patient does none of the effort to complete the activity. Or, the assistance of 2 or more helpers is required for the patient to complete the activity. If activity was not attempted, code reason: 7-Patient Refused. 9-Not Applicable-not attempted and the patient did not perform the activity before the current illness, exacerbation or injury. 10-Not Attempted due to Environmental Limitations-(lack of equipment, weather restraints, etc.). 88-Not Attempted due to Medical Conditions or Safety Concerns. Roll Left & Right (QC): 6 Sit to Lying (QC): 6 Lying to Sitting/Side of Bed(Q: 6 Sit to Stand (QC): 6 Weight Bearing Right Lower Extremity: Right Weight Bearing/Tolerated Left Lower Extremity: Left Weight Bearing/Tolerated Gait Training Does the Patient Walk?: Yes Distance: 200' Walk 10 feet (QC): 6 Walk 50 ft with 2 Turns(QC): 6 Walk 150 ft (QC): 6 Gait Assistive Device: FWW Slightly antalgic gait, reciprocal pattern, normal pace Exercises Supine Ex: Heel Slides Supine Reps: 10 Seated Therapy Exercises: Long arc quads Seated Reps: 10 Assessment Patient able to perform bed mobility and standing independently today. Patient completed supine and seated exercises, demonstrating fair strength. Patient ambulated 200' with FWW with slightly antalgic gait, but demonstrating reciprocal pattern at normal speed. Patient returned to bed with polar pack and CPM at 60 deg flexion at conclusion of treatment. PT Usp Goals Seo Assistant Goals PT [facility] Goals Time Frame: Apr 24, 2019 Roll Left & Right (QC): 6 Sit to Lying (QC): 6 Lying-Sitting on Side/Bed(QC): 6 Sit to Stand (QC): 6 Chair/Wjk-zy-Wqvkg Xfer(QC): 6 Toilet Transfer (QC): 6 Car Transfer (QC): 6 Does the Patient Walk: Yes Walk 10 feet (QC): 6 Walk 50ft with 2 Turns (QC): 6 Walk 150 ft (QC): 6 Walking 10ft on Uneven Surface: 6 1 Step (curb) (QC): 4 4 Steps (QC): 4 12 Steps (QC): 88 Picking up an Object (QC): 88 Does the Pt use WC or Scooter?: No Type: Manual Type: Manual PT Plan Treatment/Plan Treatment Plan: Continue Plan of Care, Discontinue PT Treatment Plan: Bed Mobility, Education, Functional Activity Liliana, Functional Strength, Gait, Safety, Therapeutic Exercise, Transfers Treatment Duration: Apr 24, 2019 Frequency: 11 times per week Estimated Hrs Per Day: .25 hour per day Patient and/or Family Agrees t: Yes Time/GCodes Time In: 834 Time Out: 850 Total Billed Treatment Time: 16 Total Billed Treatment 1 visit FA 16min BENNIE LEIGH PT Apr 18, 2019 10:00 POS
[2019-04-18 11:45] VITALS: BP 115/65
== END 2019-04-18 11:50 | disposition home health service (06) | DRG 470 ==
LOC: 4TH 10:57 → SURG 10:58 → 4TH 16:05
PROVIDERS: ADMIT Orthopaedic Surgery; ATTEND Orthopaedic Surgery
PROC: 0SRC0J9 Replacement of Right Knee Joint with Synthetic Substitute, Cemented, Open Approach (ICD-10-PCS; principal; 2019-04-16 13:00)
DX: M17.11 Unilateral primary osteoarthritis, right knee (principal); I10 Essential (primary) hypertension; K21.9 Gastro-esophageal reflux disease without esophagitis
CPT/HCPCS: 36415; 73560; 80048; 85027; 86850; 86900; 86901; 94664

== ENCOUNTER 2019-11-11 05:36 | Outpatient (RCR) | payer MEDICARE, OTHER ==
[~2019-11-11] VITALS: Ht 160 cm; Wt 57.7 kg
[~2019-11-11 05:36] MED LIST changes: +ACHYD1T PO; +ASPI325T32 PO; +SENN-20 PO; +SIMV40TA25 PO
== END 2019-11-11 15:09 | disposition home or self-care (01) ==
LOC: PREOP 05:36
PROVIDERS: ATTEND Surgery
DX: Z01.818 Encounter for other preprocedural examination (principal)
CPT/HCPCS: 87635

== ENCOUNTER 2019-11-13 10:14 | Day surgery (SDC) | payer MEDICARE, OTHER ==
[2019-11-13] VITALS (16 sets, daily range): BP systolic 101–165; BP diastolic 58–88
[~2019-11-13] VITALS: Ht 160 cm; Wt 57.7 kg
[2019-11-13] MEDS ORDERED: NS IV 500 ML 500 ML ONE ×2 (10:36→13:43)
[2019-11-13] MEDS: NS IV 500 ML 500 ML IV PRN ×2 (10:40→13:50)
[2019-11-13] MEDS ORDERED: HURRICAINE EXT TUBE (BENZOCAINE) XX PRN (10:45)
[2019-11-13] MEDS ORDERED: fentaNYL INJECTION 100 MCG/2 ML AMP IVP ONE (10:45)
--- NOTE | 2019-11-13 11:18 | Conscious Sedation/ASA ---
Conscious Sedation Pre-Proced Time 11:00 ASA Score 2 For ASA 3 and 4: Consider anesthesia and medical clearance. Also, for patients with a history of failed moderate sedation consider anesthesia. Airway Lungs Heart ASA score ASA 1: a normal healthy patient ASA 2: a patient with a mild systemic disease (mid diabetes, controlled hypertension, obesity ASA 3: a patient with a severe systemic disease that limits activity (angina, COPD, prior Myocardial infarction) ASA 4: a patient with an incapacitating disease that is a constant threat to life (CHF, renal failure) ASA 5: a moribund patient not expected to survive 24 hrs. (ruptured aneurysm) ASA 6: a declared brain- patient whose organs are being harvested. For emergent operations, add the letter E after the classification Mallampati Classification Grade 2 Sedation Plan Analgesia, Amnesia, Plan communicated to team members, Discussed options with patient/fam, Discussed risks with patient/fam The patient is an appropriate candidate to undergo the planned procedure, sedation, and anesthesia. The patient immediately re-assessed prior to indication. LENA HAINES MD Nov 13, 2019 11:18
--- NOTE | 2019-11-13 11:19 | Progress Note-Pre Operative ---
Pre-Operative Progress Note H&P Reviewed The H&P was reviewed, patient examined and no changes noted. Date Seen by Provider: Nov 13, 2019 Time Seen by Provider: 11:00 Date H&P Reviewed: Nov 13, 2019 Time H&P Reviewed: 11:00 Pre-Operative Diagnosis: rectal bleed, weight loss. LENA HAINES MD Nov 13, 2019 11:19
--- NOTE | 2019-11-13 11:21 | Discharge Inst-Surgical ---
D/C Lap Instructions-YANCY Follow Up Appt in 2 weeks Activity as tolerated High Fiber Diet 25g or more per day Avoid Alcohol, Caffeine, Spicy [place] and Acid foods. Drink 64 fluid oz or more of fluids per day. Symptoms to Report: Fever over 101 degree F, Nausea/Vomiting If any problems/questions: Contact your physician or go to Emergency Room LENA HAINES MD Nov 13, 2019 11:21
[2019-11-13] MEDS ORDERED: ONDANSETRON 4 MG/2 ML (SDV) Z0FRAN IVP PRN (11:30)
[2019-11-13] MEDS ORDERED: HYDROcodone/APAP 5 MG/325 MG (LORTAB) TAB PO PRN (11:30)
[2019-11-13] MEDS ORDERED: morphine INJ 10 MG/ML 1ML (SYR OR VIAL) IVP PRN ×2 (11:30)
[2019-11-13] MEDS ORDERED: ACETAMINOPHEN 325 MG TABLET PO PRN (11:30)
[2019-11-13] MEDS ORDERED: fentaNYL INJECTION 100 MCG/2 ML AMP ONE ×2 (13:29→13:55)
[2019-11-13] MEDS ORDERED: MIDAZOLAM 5 MG/5 ML (VERSED) VIAL ONE ×3 (13:29→13:47)
[2019-11-13] MEDS ORDERED: LIDOCAINE JELLY 2% 6 ML SYRINGE ONE (13:29)
[2019-11-13] MEDS ORDERED: HURRICAINE EXT TUBE (BENZOCAINE) ONE (13:30)
[2019-11-13] MEDS: MIDAZOLAM 5 MG/5 ML (VERSED) VIAL IV PRN ×4 (13:40→13:56)
--- NOTE | 2019-11-13 14:52 | OPERATIVE REPORT ---
DATE OF SERVICE: 11/13/2019 ATTENDING PRIMARY CARE PHYSICIAN: Jovany Kirk DO PREOPERATIVE DIAGNOSES: 1. Weight loss. 2. Gastroesophageal reflux disease. POSTOPERATIVE DIAGNOSES: Reflux esophagitis stage II, moderate size hiatal hernia 3 cm in size, mild gastritis. No distal obstructions. Chronic stage II external and internal hemorrhoids, mild sigmoid diverticulosis, white debris within the rectum of unknown etiology. PROCEDURE: EGD with biopsy, colonoscopy with washings. SURGEON: Lena Haines MD ANESTHESIA: Conscious sedation. ESTIMATED BLOOD LOSS: Minimal. FINDINGS: Reflux esophagitis stage II, moderate size hiatal hernia 3 cm in size, mild gastritis. No distal obstructions. Chronic stage II external and internal hemorrhoids, mild sigmoid diverticulosis, white debris within the rectum of unknown etiology. DISPOSITION: The patient tolerated the procedure well. INDICATIONS: The patient is a 74-year-old female known to us. We have done previous colonoscopies as well as EGDs in the past. She was found to have polyps, which were found to be benign tubular adenomas. She has also had issues with reflux and found to have a moderate sized hiatal hernia as well as a reflux esophagitis and a moderate gastritis and she was also positive for H. pylori in 2012 and treated appropriately. At this time, she does not report any issues with nausea and vomiting as well as loss of appetite and is able to eat. She does state that she has had some lower crampy abdominal pain, occasional episodes of constipation; however, she has inadvertently lost her appetite and lost approximately 20 pounds over the past 10 months. DESCRIPTION OF PROCEDURE: The patient was brought to the endoscopy suite, laid in the left lateral decubitus position. After adequate IV pain and sedative medications and conscious sedation anesthesia, the mouthpiece was applied. The endoscope was then placed in the mouth, visualizing the pharynx and hypopharyngeal region. Vocal cords, epiglottis and vallecula identified and appeared to be normal. The endoscope was gently intubated. The esophageal opening and esophagus insufflated. The endoscope was then advanced through the first, second and third portion of esophagus at the level of the GE junction, reflux esophagitis stage II identified. There were no ulcers or strictures identified in this region. A biopsy was taken with forceps with visualization of good hemostasis. The endoscope was then advanced in the stomach and endoscope retroflexed, visualizing a moderate size hiatal hernia approximately 3 cm in size. There was a mild gastritis. No formal ulcerations, polyps, or any neoplasms. A biopsy was taken of the antrum to rule out H. pylori with visualization of good hemostasis. The endoscope was then advanced to the pylorus and the first and second portion of the duodenum, which appeared normal with no distal obstructions. The endoscope was then slowly withdrawn while taking a second look and suctioning of residual air with no additional findings. Under the same anesthesia, we then proceeded with colonoscopy portion of procedure. A digital rectal examination was performed, which revealed chronic stage II external and internal hemorrhoids, not actively edematous nor inflamed and no bleeding. Normal sphincter tone was felt and there were no palpable masses. The endoscope was then intubated to the anus and rectum gently insufflated. There was a very good prep and there was some white stringy material within rectum of unknown etiology. This was irrigated and suctioned out and sent for ova and parasites. The endoscope was then advanced to the sigmoid where mild diverticulosis identified. The endoscope was then advanced to the remainder of the descending, transverse and ascending colon to the cecum. These segments were normal. There were no polyps or any neoplasms identified throughout the colon or rectum. Endoscope was then slowly withdrawn while taking a second look and suctioning of residual air with no additional findings. The patient tolerated the procedure well. We will await the biopsy results; however, have her continue with the necessary lifestyle and diet accommodation for reflux esophagitis as well as a hiatal hernia including small and more frequent meals, avoidance of eating at night as well as head elevation while lying supine. She also needs to avoid caffeinated beverages, spicy, greasy and acidic foods. We will also await the washings for ova and parasites of the colon; however, only mild diverticulosis and chronic hemorrhoids were identified. No polyps or any neoplasms. We will recommend a high fiber diet with 25 grams of fiber daily as well as significant amounts of water to promote soft stools on a daily basis. Job ID: [id number] DocumentID: [id number] Dictated Date: 11/13/2019 14:13:47 Assistant Inventory Manager Date: 11/13/2019 14:50:43 Dictated By: LENA HAINES MD
--- NOTE | 2019-11-13 15:19 | Progress Note-Post Operative ---
Post-Operative Progess Note Surgeon (s)/Public Works Inspector (s) Surgeon LENA HAINES MD Public Works Inspector: none Pre-Operative Diagnosis rectal bleed, weight loss. Post-Operative Diagnosis reflux esophagitis(stage 2), moderate HH(3cm), mild gastritis. chronic stage 2 ext and int hemorrhoids, mild sigmoid diverticulosis. Procedure & Operative Findings Date of Procedure 11/13/19 Procedure Performed/Findings EGD with bx. Colonoscopy. Anesthesia Type cs Estimated Blood Loss Estimated blood loss (mL): minimal Specimens/Packing Specimens Removed ge jxn, antrum LENA HAINES MD Nov 13, 2019 15:19
== END 2019-11-13 15:25 | disposition home or self-care (01) ==
LOC: ENDO 10:14
PROVIDERS: ATTEND Surgery
DX: K21.0 Gastro-esophageal reflux disease with esophagitis (principal); K44.9 Diaphragmatic hernia without obstruction or gangrene; K29.70 Gastritis, unspecified, without bleeding; K64.1 Second degree hemorrhoids; K57.30 Diverticulosis of large intestine without perforation or abscess without bleeding; Z87.19 Personal history of other diseases of the digestive system; K58.1 Irritable bowel syndrome with constipation; I10 Essential (primary) hypertension; E78.5 Hyperlipidemia, unspecified; M19.90 Unspecified osteoarthritis, unspecified site; Z96.651 Presence of right artificial knee joint
CPT/HCPCS: 87328; 87329